=== PATIENT | female | born 1995 | race African-American/Black ===

== ENCOUNTER 2017-05-19 13:27 | Emergency (ER) | payer OTHER ==
[2017-05-19] MEDS: ONDANSETRON 4MG/2ML VIAL (J2405) IV (14:45)
[2017-05-19] MEDS: NS 1,000 ML IV (14:45)
[2017-05-19] MEDS: KETOROLAC 30 MG/ML VIAL (J1885) IV (14:45)
[2017-05-19 15:12] LABS: BASO % 0.3 % (0.0-1.0); EOS # 0.4 10^3/uL (0.0-0.50); EOS % 5.6 % (0.0-3.0); HEMATOCRIT 38.2 % (36.0-47.0); HEMOGLOBIN 12.8 g/dl (12.0-16.0); IMMATURE GRANULOCYTE % 0.3 % (0-3.0); LYMPH # 2.5 10^3/uL (1.5-6.5); LYMPH % 32.5 % (24.0-44.0); MEAN CORPUSCULAR HEMOGLOBIN 28.6 pg (27.0-33.0); MEAN CORPUSCULAR HGB CONC 33.5 g/dl (32.0-36.5); MEAN CORPUSCULAR VOLUME 85.5 fl (80.0-96.0); MONO # 0.6 10^3/uL (0.0-0.8); MONO % 7.3 % (0.0-5.0); NEUTROPHILS # 4.2 10^3/uL (1.8-7.7); PLATELET COUNT, AUTOMATED 402 10^3/uL (150-450); RED BLOOD COUNT 4.47 10^6/uL (4.00-5.40); RED CELL DISTRIBUTION WIDTH 13.1 % (11.5-14.5); WHITE BLOOD COUNT 7.7 10^3/uL (4.0-10.0)
[2017-05-19 15:44] LABS: ALBUMIN 3.9 GM/DL (3.2-5.2); ALBUMIN/GLOBULIN RATIO 1.05 (1.00-1.93); ALKALINE PHOSPHATASE 81 U/L (45-117); ALT/SGPT 21 U/L (12-78); ANION GAP 6 MEQ/L (8-16); AST/SGOT 22 U/L (7-37); BILIRUBIN,TOTAL 0.2 MG/DL (0.2-1.0); BLOOD UREA NITROGEN 11 MG/DL (7-18); CALCIUM LEVEL 9.4 MG/DL (8.5-10.1); CARBON DIOXIDE LEVEL 27 MEQ/L (21-32); CHLORIDE LEVEL 108 MEQ/L (98-107); CREATININE FOR GFR 0.68 MG/DL (0.55-1.30); GLUCOSE, FASTING 98 MG/DL (70-100); POTASSIUM SERUM 4.3 MEQ/L (3.5-5.1); SODIUM LEVEL 141 MEQ/L (136-145); TOTAL PROTEIN 7.6 GM/DL (6.4-8.2)
== END 2017-05-19 16:08 | disposition home or self-care (01) ==
LOC: M ED 13:27
DX: R51 Headache (principal); R10.84 Generalized abdominal pain; R11.0 Nausea
CPT/HCPCS: J2405

== ENCOUNTER 2017-08-16 14:20 | Emergency (ER) | payer OTHER ==
[2017-08-16 14:52] LABS: KETONE, URINE AUTO RFX NEGATIVE (NEGATIVE); LEUKOCYTE ESTERASE UR AUTO RFX NEGATIVE (NEGATIVE); MUCUS, URINE RFX SMALL (NEGATIVE); NITRITE, URINE AUTO RFX NEGATIVE (NEGATIVE); RBC, URINE AUTO RFX 4 /HPF (0-3); SPECIFIC GRAVITY UR AUTO RFX 1.025 (1.002-1.035); SQUAM EPITHELIAL CELL UR AURFX 4 /HPF (0-6); WBC, URINE AUTO RFX 3 /HPF (0-3)
== END 2017-08-16 16:27 | disposition left against medical advice (07) ==
LOC: M ED 14:20
DX: R10.11 Right upper quadrant pain (principal); R11.2 Nausea with vomiting, unspecified; D64.9 Anemia, unspecified; R00.2 Palpitations
CPT/HCPCS: 81001

== ENCOUNTER 2017-08-21 10:40 | Emergency (ER) | payer OTHER ==
[2017-08-21 11:45] LABS: KETONE, URINE AUTO RFX NEGATIVE (NEGATIVE); MUCUS, URINE RFX SMALL (NEGATIVE); NITRITE, URINE AUTO RFX NEGATIVE (NEGATIVE); RBC, URINE AUTO RFX 3 /HPF (0-3); SPECIFIC GRAVITY UR AUTO RFX 1.021 (1.002-1.035); SQUAM EPITHELIAL CELL UR AURFX 8 /HPF (0-6); WBC, URINE AUTO RFX 5 /HPF (0-3)
[2017-08-21 11:49] LABS: LEUKOCYTE ESTERASE UR AUTO RFX TRACE (NEGATIVE)
[2017-08-21] MEDS: NS 1,000 ML IV (12:52)
[2017-08-21] MEDS: ONDANSETRON 4MG/2ML VIAL (J2405) IV (12:53)
[2017-08-21 12:59] LABS: BASO % 0.2 % (0.0-1.0); EOS # 0.1 10^3/uL (0.0-0.50); EOS % 1.1 % (0.0-3.0); HEMATOCRIT 37.8 % (36.0-47.0); HEMOGLOBIN 12.8 g/dl (12.0-15.5); IMMATURE GRANULOCYTE % 0.3 % (0-3.0); LYMPH # 1.5 10^3/uL (1.5-6.5); LYMPH % 13.7 % (24.0-44.0); MEAN CORPUSCULAR HEMOGLOBIN 28.4 pg (27.0-33.0); MEAN CORPUSCULAR HGB CONC 33.9 g/dl (32.0-36.5); MONO # 0.4 10^3/uL (0.0-0.8); NEUTROPHILS # 8.9 10^3/uL (1.8-7.7); NEUTROPHILS % 80.7 % (36.0-66.0); PLATELET COUNT, AUTOMATED 389 10^3/uL (150-450)
[2017-08-21 13:24] LABS: ALBUMIN 3.8 GM/DL (3.2-5.2); ALBUMIN/GLOBULIN RATIO 0.79 (1.00-1.93); ALKALINE PHOSPHATASE 100 U/L (45-117); ALT/SGPT 24 U/L (12-78); AMYLASE 63 U/L (25-115); ANION GAP 6 MEQ/L (8-16); AST/SGOT 21 U/L (7-37); BILIRUBIN,DIRECT 0.1 MG/DL (0.0-0.2); BILIRUBIN,TOTAL 0.3 MG/DL (0.2-1.0); BLOOD UREA NITROGEN 8 MG/DL (7-18); CALCIUM LEVEL 9.1 MG/DL (8.5-10.1); CARBON DIOXIDE LEVEL 30 MEQ/L (21-32); CHLORIDE LEVEL 102 MEQ/L (98-107); CK-MB VALUE MASS 2.4 NG/ML (<3.6); CPK CREATINE PHOSPHOKINASE 310 U/L (26-192); CREATININE FOR GFR 0.83 MG/DL (0.55-1.30); GLUCOSE, FASTING 100 MG/DL (70-100); LIPASE 104 U/L (73-393); MB/CK RELATIVE INDEX 0.77 (< OR =4); SODIUM LEVEL 138 MEQ/L (136-145); TOTAL PROTEIN 8.6 GM/DL (6.4-8.2); TROPONIN I < 0.02 NG/ML (< 0.10)
== END 2017-08-21 14:33 | disposition home or self-care (01) ==
LOC: M ED 10:40
DX: N39.0 Urinary tract infection, site not specified (principal); D64.9 Anemia, unspecified
CPT/HCPCS: J2405

== ENCOUNTER 2018-08-13 11:55 | Emergency (ER) | payer OTHER ==
[~2018-08-13] VITALS: Ht 170.2 cm; Wt 116.4 kg
[~2018-08-13 11:55] MED LIST: BACT800T5 PO; KETO10TAB PO; REGL10TA6 PO; ZOFR4TAB14 PO
[2018-08-13] MEDS ORDERED: IBUPROFEN 800 MG TAB PO ONE (13:00)
[2018-08-13] MEDS ORDERED: CYCLOBENZAPRINE 10 MG TAB PO ONE (13:00)
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
[2018-08-13 15:23] VITALS: BP 133/83
[2018-08-13] MEDS ORDERED: CYCL10TA PO (15:31)
[2018-08-13] MEDS ORDERED: IBUP-1022 PO (15:31)
== END 2018-08-13 15:35 | disposition home or self-care (01) ==
LOC: M ED 11:55
DX: S29.012A Strain of muscle and tendon of back wall of thorax, initial encounter (principal); V43.62XA Car passenger injured in collision with other type car in traffic accident, initial encounter; Y92.9 Unspecified place or not applicable; Y93.9 Activity, unspecified; Y99.9 Unspecified external cause status

== ENCOUNTER 2018-10-04 10:43 | Emergency (ER) | payer OTHER ==
[~2018-10-04] VITALS: Ht 167.6 cm; Wt 121.0 kg
[~2018-10-04 10:43] MED LIST changes: +CYCL10TA PO; +IBUP-1022 PO
[2018-10-04] MEDS ORDERED: ASPI81CH33 PO (10:50)
[2018-10-04] MEDS ORDERED: METF500T13 (10:50)
[2018-10-04] MEDS ORDERED: PRED5TA (10:50)
[2018-10-04 12:06] LABS: BASO % 0.2 % (0.0-1.0); EOS # 0.1 10^3/uL (0.0-0.50); EOS % 0.5 % (0.0-3.0); HEMATOCRIT 38.7 % (36.0-47.0); HEMOGLOBIN 13.2 g/dl (12.0-15.5); LYMPH # 2.6 10^3/uL (1.5-6.5); LYMPH % 15.1 % (24.0-44.0); MEAN CORPUSCULAR HEMOGLOBIN 28.1 pg (27.0-33.0); MEAN CORPUSCULAR HGB CONC 34.1 g/dl (32.0-36.5); MEAN CORPUSCULAR VOLUME 82.3 fl (80.0-96.0); MONO # 0.8 10^3/uL (0.0-0.8); MONO % 4.9 % (0.0-5.0); NEUTROPHILS # 13.3 10^3/uL (1.8-7.7); NEUTROPHILS % 78.8 % (36.0-66.0); PLATELET COUNT, AUTOMATED 380 10^3/uL (150-450); WHITE BLOOD COUNT 16.9 10^3/uL (4.0-10.0)
[2018-10-04 12:28] LABS: ALBUMIN 3.8 GM/DL (3.2-5.2); ALT/SGPT 19 U/L (12-78); BILIRUBIN,DIRECT < 0.1 MG/DL (0.0-0.2); BILIRUBIN,TOTAL 0.2 MG/DL (0.2-1.0); LIPASE 110 U/L (73-393)
--- NOTE | 2018-10-04 14:37 | REP ---
FIRST TRIMESTER ULTRASOUND: Real-time sonographic evaluation of the pelvis is performed utilizing transabdominal and endovaginal technique. The uterus measures 8.1 x 4.2 x 6.7 cm. Endometrium measures 14 mm in thickness. No gestational sac is seen. Prominent nabothian cyst is seen in the region of the cervix. Right ovary measures 5.9 x 3.5 x 4.5 cm and contains a complex cystic structure 2.9 x 2.6 x 2.3 cm. Left ovary measures 6.3 x 4.9 x 5.5 cm with a simple anechoic cyst 4 cm in maximum diameter. There is no torsion bilaterally, RI right ovary 0.45 and left ovary 0.47. Large amount of free fluid is seen throughout the pelvis. Differential diagnosis would include very early intrauterine , missed or ectopic . Suggest correlation with serial quantitative beta hCG values and followup ultrasound as necessary. Electronically Signed by Micah Luciano MD 10/05/2018 10:01 A
[2018-10-04 15:34] VITALS: BP 145/64
== END 2018-10-04 15:42 | disposition home or self-care (01) ==
LOC: M ED 12:15
DX: O34.81 Maternal care for other abnormalities of pelvic organs, first trimester (principal); O99.511 Diseases of the respiratory system complicating pregnancy, first trimester; O99.011 Anemia complicating pregnancy, first trimester; O99.211 Obesity complicating pregnancy, first trimester; Z79.82 Long term (current) use of aspirin; Z79.899 Other long term (current) drug therapy

== ENCOUNTER → 2018-10-06 | Outpatient (CLI) | payer OTHER ==
[~2018-10-06] MED LIST changes: +ASPI81CH33 PO; +METF500T13; +PRED5TA
== END ==
LOC: M LAB 11:03
PROVIDERS: ATTEND Physician Assistant
DX: O26.891 Other specified pregnancy related conditions, first trimester (principal); R10.9 Unspecified abdominal pain